=== PATIENT | female | born 1975 | race Caucasian/White ===

== ENCOUNTER 2019-03-25 17:50 | Observation (INO) | payer OTHER, SELFPAY ==
[~2019-03-25 17:50] MED LIST: ISOVUE-370 76%-LOCM 1 ML ONE
[2019-03-25] MEDS ORDERED: Ondansetron PF 4 MG/2 ML Vial ONE (18:23)
[2019-03-25] MEDS ORDERED: Morphine 4 MG/ML VIAL ONE ×2 (18:23→23:38)
[2019-03-25 18:35] LABS: #Basophils 0.1 thou/uL (0.0-0.2); #Monocytes 0.5 thou/uL (0.11-0.59); %Basophils 0.9 % (0.0-1.0); %Eosinophils 0.7 % (0.0-10.0); %Lymphocytes 30.2 % (21.0-51.0); %Monocytes 7.8 % (0.0-10.0); %Neutrophils 60.5 % (42.0-75.0); Hemoglobin 14.6 g/dL (12.0-16.0); Mean Corpuscular HGB CONC 32.6 g/dL (32.0-36.0); Mean Corpuscular Hemoglobin 27.2 pg (27.0-31.0); Mean Corpuscular Volume 83.5 fL (78.0-98.0); Mean Platelet Volume 8.6 fL (7.4-10.4); Platelet Count 269 thou/uL (130-400); RBC Distribution Width 14.4 % (11.5-14.5); Red Blood Cell (RBC) Count 5.37 mill/uL (4.20-5.40); White Blood Cell (WBC) Count 6.6 thou/uL (4.8-10.8)
[2019-03-25 18:41] LABS: BHCG - Serum Negative (NEGATIVE); Pregs Control Background? CLEAR/WHITE (CLR/WHITE); Pregs Control Bar Appear? YES (CONTROL BAR)
[2019-03-25 19:10] LABS: Albumin 4.2 g/dL (3.5-5.0)
[2019-03-25 19:11] LABS: Chloride 102 mmol/L (98-107); Potassium 3.6 mmol/L (3.5-5.1); Sodium 137 mmol/L (136-145)
[2019-03-25 19:12] LABS: Calcium 9.3 mg/dL (7.8-10.44); Magnesium 2.2 mg/dL (1.6-2.6)
[2019-03-25 19:13] LABS: Glucose 85 mg/dL (70-105); Protein, Total 7.2 g/dL (6.0-8.3)
[2019-03-25 19:14] LABS: Anion Gap 17 mmol/L (10-20); Carbon Dioxide 22 mmol/L (22-29)
[2019-03-25 19:15] LABS: Alkaline Phosphatase 61 U/L (40-150); Bilirubin, Total 0.5 mg/dL (0.2-1.2)
[2019-03-25 19:16] LABS: Calc. Creatinine Clearance 0 mL/min (70-130); Estimated GFR-MDRD 83
[2019-03-25 19:17] LABS: BUN (Urea Nitrogen) 7 mg/dL (7.0-18.7)
[2019-03-25 19:18] LABS: AST (SGOT) 17 U/L (5-34)
[2019-03-25 19:19] LABS: ALT (SGPT) 12 U/L (8-55); Lipase 27 U/L (8-78)
--- NOTE | 2019-03-25 20:05 | CT ---
CT ABDOMEN AND PELVIS WITH ORAL AND IV CONTRAST: 03/25/19 HISTORY: Lap band surgery in 2007. Patient has heartburn and abdominal and back pain for the past one week. FINDINGS: The lung bases are unremarkable. Postop changes of laparoscopic banding surgery is seen. The liver, s pleen, pancreas, and adrenal glands are normal. Low dense lesions in the kidneys are likely cysts. No calcified gallstones are seen. No free air, free fluid or lymphadenopathy is noted in the abdomen or pelvis. The small bowel loops a re not abnormally dilated. The uterus and ovaries are present. No acute osseous abnormalities are seen. IMPRESSION: No evidence of acute process. POS: [facility]
--- NOTE | 2019-03-25 20:33 | ULT ---
GALLBLADDER ULTRASOUND: 03/25/19 HISTORY: 44-year-old female with abdominal pain. FINDINGS: The liver, gallbladder, right kidney and visualized portions of the pancreas is normal. The common du ct measures 2 mm in diameter. No free fluid is seen. IMPRESSION: Normal exam. POS: [facility]
--- NOTE | 2019-03-25 20:41 | HP ---
CHIEF COMPLAINT: Severe epigastric abdominal pain and dysphagia. HISTORY OF PRESENT ILLNESS: The patient is a 44-year-old female, who had a lap band placed in 2007, was doing okay until about a week ago when she has developed severe constant epigastric pain radiating to the back with some nausea. No fever. She is unable to tolerate any type of solid food. She can barely take any liquids. She is having severe reflux and nocturnal cough. PAST MEDICAL HISTORY: Significant for seasonal allergies. PAST SURGICAL HISTORY: Lap band surgery in 2007 and appendectomy in 2012. MEDICATIONS: Prevacid. FAMILY HISTORY: Mother has with cancer. SOCIAL HISTORY: She is single. No tobacco. No alcohol. ALLERGIES: SHE HAS ALLERGIES TO PIT FRUITS. PHYSICAL EXAMINATION: VITAL SIGNS: She is afebrile, pulse 83, and blood pressure 125/92. GENERAL: She is tearful, in severe pain. HEENT: No jaundice. LUNGS: Clear. HEART: Regular rate and rhythm. ABDOMEN: Soft. She is mildly tender in the epigastric region. No masses or hernias. EXTREMITIES: Good pulses. No pedal edema. ASSESSMENT: Probable slipped lap band. PLAN: We will do a CT. If there is any sign of ischemia, she will need to go tonight. Otherwise, laparoscopic removal of lap band and port in the morning. Job ID: [id number]
[2019-03-26 09:34] VITALS: BMI 30.2
[2019-03-26] MEDS ORDERED: Morphine 4 MG/ML VIAL SLOW IVP PRN ×2 (10:04→13:55)
[2019-03-26] MEDS ORDERED: Morphine 4 MG/ML VIAL ONE (10:19)
[2019-03-26] MEDS ORDERED: Bupivacaine/Epinephrine 0.25% 30 ML VIAL ONE (12:37)
[2019-03-26] MEDS ORDERED: Lidocaine 2% Jelly 5 ML TUBE ONE (12:49)
[2019-03-26] MEDS ORDERED: Fentanyl 100 MCG/2 ML VIAL ONE ×2 (12:49→14:23)
[2019-03-26] MEDS ORDERED: diphenhydrAMINE 50 MG/ML VIAL IVP PRN (13:55)
[2019-03-26] MEDS ORDERED: Dextrose 50% Abboject 50 ML SYRINGE SLOW IVP PRN (13:55)
[2019-03-26] MEDS ORDERED: Hydrocodone-Acetamin 15 ML UDCUP PO PRN (13:55)
[2019-03-26] MEDS ORDERED: Ondansetron PF 4 MG/2 ML Vial IVP PRN (13:55)
[2019-03-26] MEDS ORDERED: Promethazine HCl 25 MG/ML VIAL IM PRN ×2 (13:55→14:04)
[2019-03-26] MEDS ORDERED: Morphine 2 MG/ML SYRINGE SLOW IVP PRN (13:55)
[2019-03-26] MEDS ORDERED: Dextrose 5% in Water 1,000 ML IV PRN (13:55)
[2019-03-26] MEDS ORDERED: hydrALAZINE 20 MG/ML VIAL SLOW IVP PRN (13:55)
[2019-03-26] MEDS ORDERED: Ondansetron HCl/PF 4 MG/2 ML Vial IVP PRN (14:04)
[2019-03-26] MEDS ORDERED: Promethazine HCl 25 MG/ML VIAL SLOW IVP PRN (14:04)
[2019-03-26] MEDS ORDERED: Sodium Chloride 0.9% (PF) 10 ML VIAL FS PRN (14:34)
[2019-03-26] MEDS ORDERED: Lidocaine 1% PF 5 ML VIAL ONE (16:09)
[2019-03-26] MEDS ORDERED: Esmolol 100 MG/10 ML VIAL ONE (16:09)
[2019-03-26] MEDS ORDERED: Ketorolac Tromethamine 30 MG/ML VIAL ONE (16:09)
[2019-03-26] MEDS ORDERED: Glycopyrrolate 0.2 MG/ML 5 ML SYRINGE ONE (16:09)
[2019-03-26] MEDS ORDERED: Dexamethasone 20 MG/5 ML VIAL ONE (16:09)
[2019-03-26] MEDS ORDERED: Ondansetron PF 4 MG/2 ML Vial ONE (16:09)
[2019-03-26] MEDS ORDERED: Rocuronium Bromide 10 MG/ML (10ML VIAL) ONE (16:09)
[2019-03-26] MEDS ORDERED: PROPOFOL 200 MG/20 ML VIAL ONE (16:09)
[2019-03-26] MEDS: Ketorolac Tromethamine 30 MG/ML VIAL IVP SCH (17:51)
[2019-03-26] MEDS: D5 1/2 NS w/20 mEq KCL 1,000 ML IV SCH ×2 (17:51→23:14)
[2019-03-26] MEDS: CEFAZOLIN 2 GM in Premix Bag 1 BAG IVPB SCH (21:13)
[2019-03-27] MEDS: Ketorolac Tromethamine 30 MG/ML VIAL IVP SCH ×2 (00:05→05:28)
[2019-03-27 05:03] LABS: #Lymphocytes 1.2 thou/uL (1.20-3.40); #Monocytes 0.9 thou/uL (0.11-0.59); #Neutrophils 6.9 thou/uL (1.40-6.50); %Basophils 0.2 % (0.0-1.0); %Eosinophils 0.1 % (0.0-10.0); %Lymphocytes 13.3 % (21.0-51.0); %Monocytes 9.5 % (0.0-10.0); %Neutrophils 76.9 % (42.0-75.0); Hemoglobin 12.5 g/dL (12.0-16.0); Mean Corpuscular Volume 84.9 fL (78.0-98.0); Mean Platelet Volume 8.5 fL (7.4-10.4); Platelet Count 215 thou/uL (130-400); RBC Distribution Width 14.6 % (11.5-14.5); Red Blood Cell (RBC) Count 4.46 mill/uL (4.20-5.40)
[2019-03-27 05:22] LABS: Anion Gap 11 mmol/L (10-20); BUN (Urea Nitrogen) 6 mg/dL (7.0-18.7); Calc. Creatinine Clearance 138 mL/min (70-130); Calcium 8.8 mg/dL (7.8-10.44); Carbon Dioxide 24 mmol/L (22-29); Chloride 105 mmol/L (98-107); Estimated GFR-MDRD Greater than 90; Glucose 113 mg/dL (70-105); Potassium 3.5 mmol/L (3.5-5.1); Sodium 136 mmol/L (136-145)
[2019-03-27] MEDS: CEFAZOLIN 2 GM in Premix Bag 1 BAG IVPB SCH (05:28)
[2019-03-27] MEDS: D5 1/2 NS w/20 mEq KCL 1,000 ML IV SCH (06:48)
[2019-03-27 08:00] VITALS: BP 137/84; TEMP 99.1
[2019-03-27] MEDS ORDERED: Enoxaparin Sodium 40 MG/0.4 ML SYRINGE SC SCH (09:00)
[2019-03-27] MEDS ORDERED: Pantoprazole 40 MG VIAL IVP SCH (09:00)
--- NOTE | 2019-03-27 09:05 | OP ---
DATE OF PROCEDURE: 03/26/2019 PREOPERATIVE DIAGNOSIS: Partial gastric obstruction. PROCEDURE PERFORMED: Laparoscopic removal of band and port. INDICATIONS: The patient is a 44-year-old female, who had a lap band placed in 2007, who was doing okay with it until last month or so and she has started having progressive dysphagia over the last few days. She has been unable to tolerate anything. Came to the emergency room. She had a CT scan and ultrasound, that were relatively unremarkable. FINDINGS: The band was completely empty. She had quite a bit of adhesions around the band and it may have been partially slipped. DESCRIPTION OF PROCEDURE: After informed consent was obtained, the patient was taken to the operating room and given general endotracheal anesthesia and placed in supine position. Her abdomen was prepped and draped in the usual fashion. Local anesthesia infiltrated subcutaneously and deep. A 5-mm incision was performed approximately 8 inches above the xiphoid slightly to the left. Veress needle inserted. Drop test performed. Pneumoperitoneum was created to a volume of 2 L of carbon dioxide. Utilizing a bladeless 5-mm trocar and 0-degree laparoscope, direct visual entry in the abdominal cavity was performed. Pneumoperitoneum was created to a pressure of 15 mmHg and the patient placed in steep reverse Trendelenburg position. Ary liver retractor inserted. Left lobe of liver retracted superiorly. The lap band was found. The tubing was divided sharply. The tubing was then traced down to the buckle, which was dissected out. Adhesions were lysed sharply to open up the capsule and release the buckle. The buckle was unlocked, the band unlocked. The capsule further incised. The band removed from around the stomach. It was removed from the abdomen through the left lateral port site. Hemostasis was assured. Trocars and retractors were removed. Then, the port was excised sharply utilizing electrocautery. Hemostasis was assured. Subcu was reapproximated with 3-0 Vicryl suture. The skin closed with interrupted 4-0 Rapide. Dermabond applied. The patient tolerated the procedure well, transferred to Recovery in good condition. Sponge and needle count verified correct x2. Job ID: [id number]
--- NOTE | 2019-03-27 12:27 | DIS ---
DATE OF ADMISSION: 03/25/2019 DATE OF DISCHARGE: 03/27/2019 DISCHARGE DIAGNOSIS: Obstructed lap band. PROCEDURES DURING ADMISSION: Laparoscopic removal of lap band and port. HOSPITAL COURSE: The patient was admitted through the emergency room. She was given IV fluids. Taken to the operating room where she underwent a laparoscopic removal of the band and port. Postoperatively, she is doing well. She is tolerating liquids well. Her pain was controlled on p.o. medications. She was discharged to home on hydrocodone and Zofran. She will follow up with me in 2 weeks. Job ID: [id number]
== END 2019-03-27 11:54 | disposition home or self-care (01) ==
LOC: ERS 17:50 → ERHOLD 20:10 → SURG A 03-26 15:32
PROVIDERS: ADMIT Surgery; ATTEND Surgery
PROC: 0DP60CZ Removal of Extraluminal Device from Stomach, Open Approach (ICD-10-PCS; principal; 2019-03-27)
DX: K95.09 Other complications of gastric band procedure (principal); K31.1 Adult hypertrophic pyloric stenosis; K66.0 Peritoneal adhesions (postprocedural) (postinfection); Z98.84 Bariatric surgery status; Z91.018 Allergy to other foods
CPT/HCPCS: 36415; 74177; 76705; 80048; 80053; 83690; 83735; 84703; 85025; 94760; 96361; 96366; 96367; 96372; 96374; 96375; 96376; C9113; G0378; J0131; J0690; J1100; J1650; J1885; J2001; J2270; J2405; J2704; J3010; J7620; Q9966

== ENCOUNTER 2019-09-30 10:47 | Emergency (ER) | payer SELFPAY ==
--- NOTE | 2019-09-30 11:22 | RAD ---
EXAM: Single view of the chest HISTORY: Dyspnea with indigestion and bloating COMPARISON: None FINDINGS: Single view of the chest shows a normal sized cardiomediastinal silhouette. There is no marly dence of consolidation, mass, or pleural effusion. The bones are unremarkable. IMPRESSION: No evidence of acute cardiopulmonary disease
[2019-09-30 11:48] LABS: #Basophils 0.1 thou/uL (0.0-0.2); #Lymphocytes 1.4 thou/uL (1.20-3.40); #Monocytes 0.5 thou/uL (0.11-0.59); #Neutrophils 3.9 thou/uL (1.40-6.50); %Basophils 1.1 % (0.0-1.0); %Eosinophils 0.4 % (0.0-10.0); %Monocytes 7.7 % (0.0-10.0); %Neutrophils 66.8 % (42.0-75.0); Hemoglobin 15.6 g/dL (12.0-16.0); Mean Corpuscular HGB CONC 32.6 g/dL (32.0-36.0); Mean Corpuscular Hemoglobin 27.7 pg (27.0-31.0); Mean Corpuscular Volume 84.9 fL (78.0-98.0); Mean Platelet Volume 8.5 fL (7.4-10.4); Platelet Count 261 thou/uL (130-400); RBC Distribution Width 13.6 % (11.5-14.5); Red Blood Cell (RBC) Count 5.64 mill/uL (4.20-5.40); White Blood Cell (WBC) Count 5.9 thou/uL (4.8-10.8)
[2019-09-30 12:10] LABS: ALT (SGPT) 13 U/L (8-55); AST (SGOT) 15 U/L (5-34); Albumin 4.5 g/dL (3.5-5.0); Alkaline Phosphatase 60 U/L (40-110); Anion Gap 18 mmol/L (10-20); BUN (Urea Nitrogen) 7 mg/dL (7.0-18.7); Bilirubin, Total 0.9 mg/dL (0.2-1.2); Calc. Creatinine Clearance 0 mL/min (70-130); Calcium 9.5 mg/dL (7.8-10.44); Carbon Dioxide 18 mmol/L (22-29); Chloride 106 mmol/L (98-107); Estimated GFR-MDRD 87; Glucose 80 mg/dL (70-105); Lipase 13 U/L (8-78); Potassium 4.2 mmol/L (3.5-5.1); Protein, Total 7.5 g/dL (6.0-8.3); Sodium 138 mmol/L (136-145)
[2019-09-30 12:25] LABS: Bilirubin Negative (Negative); Blood, Urine Negative (Negative); Clarity Clear (Clear); Glucose, Urine (Dipstick) Normal (Negative); Leukocyte Negative Leu/uL (Negative); Nitrite Negative (Negative); Protein, Urine (Dipstick) Negative (Neg-Trace); Urobilinogen Normal mg/dL (Less than 2)
[2019-09-30 12:27] LABS: Pregnancy Test - Urine (BHCG) Negative (Negative); Pregu Control Background? CLEAR/WHITE (CLR/WHITE); Pregu Control Bar Appear? YES (CONTROL BAR); Specific Gravity 1.007 (1.002-1.036)
--- NOTE | 2019-09-30 12:35 | ULT ---
Right upper quadrant ultrasound: 09/30/2019 COMPARISON: 03/25/2019 HISTORY: Right upper quadrant pain TECHNIQUE: Multiplanar grayscale sonographic imaging of the right upper quadrant provided. FINDINGS: Imaged pancreas unremarkable. Distal body and tail obscured by bowel gas. No discrete focal liver lesion or intrahepatic biliary dilatation. The common bile duct measures 3 mm , within normal limits. There are a few tiny foci of increased echogenicity within the gallbladder lumen without shadowing wh ich may represent tiny nonshadowing stones measuring up to approximately 2 mm. The subtle foci of echogenicity within the gallbladder lumen could also represent small volume sludge. No gallbladder wa ll thickening or pericholecystic fluid. Right kidney measures 9.7 cm in craniocaudal dimension. There is a lobulated hypoechoic lesion within the mid pole of the right kidney measuring 1.6 x 1.9 x 2.1 cm, probably representing a complex cystic lesion. IMPRESSION: 1. Questionable tiny gallstones with no evidence for cholecystitis or biliary dilatation. 2. Probable complex cyst within the midpole of the right kidney for which nonemergent follow-up CT of abdomen with and without contrast using renal mass protocol advised. CODE T
--- NOTE | 2019-09-30 14:14 | CT ---
CT Abdomen Pelvis W Con: 09/30/2019 1:35 PM CLINICAL INFORMATION: Intermittent right upper quadrant abdominal pain COMPARISON: 03/25/2019 TECHNIQUE: Multiple contiguous axial images were obtained and a CT of the abdomen and pelvis with IV contrast. C oronal and sagittal reformats were performed. FINDINGS: Lower Chest: within normal limits. Abdomen: Liver: within normal limits. Bile Ducts: Normal caliber. Gallbladder: No calcified gallstones. Normal caliber wall. Pancreas: within normal limits. Spleen: within normal limits. Adrenals: within normal limits. Kidneys: Hypodensities measuring up to 2.0 cm in size represent cysts. Pelvis: Reproductive Organs: No pelvic masses. Ureters: within normal limits. Bladder: within normal limits. Peritoneum: No ascites or free air, no fluid collection. Bowel: Normal caliber. Mesentery and Retroperitoneum: No enlarged mesenteric or retroperitoneal lymph nodes. Vessels: Normal. Abdominal Wall: A small nodule in the left lower quadrant abdominal wall represents the prior port si te from gastric band. The gastric band has been removed from the gastroesophageal junction. Bones: Within normal limits IMPRESSION: 1. No evidence of acute intraabdominal or pelvic abnormality. 2. Bilateral renal cysts
--- NOTE | 2019-10-04 14:24 | EKG ---
Test Reason : Blood Pressure : / mmHG Vent. Rate : 080 BPM Atrial Rate : 080 BPM P-R Int : 122 ms QRS Dur : 074 ms QT Int : 380 ms P-R-T Axes : 074 032 039 degrees QTc Int : 438 ms Normal sinus rhythm Possible Left atrial enlargement Borderline ECG Confirmed by MADELINE JOHNSON DO ([id number]), news editor JERSON MULLEN ([id number]) on 10/04/2019 2:24:11 PM Referred By: Confirmed By:MADELINE JOHNSON DO
== END 2019-09-30 15:00 | disposition home or self-care (01) ==
LOC: ERS 10:47
DX: R10.11 Right upper quadrant pain (principal)
CPT/HCPCS: 71045; 74177; 76705; 80053; 81003; 81025; 83690; 84484; 85025; 93005; 94760